=== PATIENT | female | born 1950 | race Caucasian/White ===

== ENCOUNTER 2018-01-23 20:27 | Emergency (ER) | payer OTHER ==
[~2018-01-23] VITALS: Ht 170.2 cm; Wt 113.4 kg
[~2018-01-23 20:27] MED LIST: ANTIVERT25 MG PO; ATIVAN1 MG PO; CIPRO500 MG PO; IBUPROFEN 200200 M1 PO; LOPRESSOR25 PO; LOPRESSOR50; METFORMIN HCL500 MG PO; ONDANSETRON HCL4 M2 PO; PRINIVIL20 MG; SERTRALINE HCL50 MG PO; ZANTAC 150MG T150 MG PO; ZESTORETIC 20-1 EAC2 PO
[2018-01-23] MEDS ORDERED: GLUCOPHAGE XR750 MG PO (20:38)
[2018-01-23] MEDS ORDERED: PERCOCET 7.5-31 EACH PO (21:12)
[2018-01-23 21:33] VITALS: BP 142/76
== END 2018-01-23 21:34 | disposition home or self-care (01) ==
LOC: M.ERS 20:27
DX: S83.8X2A Sprain of other specified parts of left knee, initial encounter (principal); E11.9 Type 2 diabetes mellitus without complications; I10 Essential (primary) hypertension; K21.9 Gastro-esophageal reflux disease without esophagitis; W01.0XXA Fall on same level from slipping, tripping and stumbling without subsequent striking against object, initial encounter; Y93.89 Activity, other specified; Y92.89 Other specified places as the place of occurrence of the external cause; Y99.8 Other external cause status

== ENCOUNTER 2020-11-27 02:17 | Emergency (ER) | payer OTHER ==
[~2020-11-27] VITALS: Ht 170.2 cm; Wt 117.9 kg
[~2020-11-27 02:17] MED LIST changes: +GLUCOPHAGE XR750 MG PO; +PERCOCET 7.5-31 EACH PO
[2020-11-27] MEDS ORDERED: PRILOSEC OTC20 MG PO (02:48)
[2020-11-27] MEDS ORDERED: GLIPIZIDE 10 MG10 MG PO (02:49)
[2020-11-27 02:59] LABS: URINE BILIRUBIN NEGATIVE (Negative); URINE BLOOD TRACE (Negative); URINE CLARITY CLEAR; URINE COLOR YELLOW; URINE GLUCOSE-RANDOM NEGATIVE (Negative); URINE KETONES NEGATIVE (Negative); URINE LEUKOCYTES-REFLEX TRACE (Negative); URINE NITRITE-REFLEX NEGATIVE (Negative); URINE PROTEIN NEGATIVE (Negative); URINE UROBILINOGEN 0.2 E.U./dl (0.2-1.0)
[2020-11-27 03:18] LABS: ABSOLUTE BASOPHILS 0.1 thou/uL (0.0-0.2); ABSOLUTE EOSINOPHILS 0.3 thou/uL (0.0-0.7); ABSOLUTE LYMPHOCYTES 3.1 thou/uL (0.8-5.3); ABSOLUTE MONOCYTES 0.6 thou/uL (0.0-1.2); ABSOLUTE NEUTROPHILS 5.7 thou/uL (1.6-8.1); BASOPHILS 0.6 %; EOSINOPHILS 3.1 %; HEMATOCRIT 34.4 % (37.0-47.0); HEMOGLOBIN 11.4 gm/dL (12.0-15.0); LYMPHOCYTES 31.7 %; MCH 27.8 pg (26.0-34.0); MCHC 33.1 g/dL (28.0-37.0); MONOCYTES 6.6 %; MPV 8.6 fl. (7.2-11.1); NUCLEATED RBCS 0 /100WBC; PLATELET COUNT* 174 thou/uL (150-400); RBC 4.09 mil/uL (4.20-5.00); RDW-CV 14.1 % (10.5-14.5); WBC 9.7 thou/uL (4.0-11.0)
[2020-11-27 03:27] LABS: ALBUMIN 3.4 g/dL (3.4-5.0); MAGNESIUM 1.4 mg/dL (1.8-2.4); TOTAL BILIRUBIN 0.2 mg/dL (<0.1-1.0); TOTAL PROTEIN 7.2 g/dL (6.4-8.2)
[2020-11-27 03:52] LABS: CASTS None Seen /LPF (None Seen); SQUAMOUS >10 Many /LPF (0-3)
[2020-11-27 03:53] LABS: BACTERIA-REFLEX 1-9 Few /HPF (None Seen); CRYSTALS None Seen /LPF (None Seen); URINE RBC None Seen /HPF (0-2); URINE WBC-REFLEX 0-5 Rare /HPF (0-5)
[2020-11-27 05:17] LABS: PROTIME 10.5 Seconds (9.20-11.50)
[2020-11-27 05:46] VITALS: BP 126/69
--- NOTE | 2020-11-27 14:07 | EKG ---
[place] [address] ELECTROCARDIOGRAM REPORT Name: LIBERTAD MARIE Room: [facility]#: [id number] Admission: 11/27/20 Attend Phys: Discharge: Date of : 52 Date of Service: 11/27/20312 Report #: [id number] THIS REPORT FOR: //name// [facility] ED Test Date: 2020-11-27 Test Time: 03:13:43 Pat Name: LIBERTADCarol MARIE Department: Room: Gender: [employer]: [facility] : 1950 Requested By: Kate Nevarez Order Number: [id number] MD: David Bautista Measurements Intervals [place] Rate: 94 P: 60 [place]: 183 QRS: 36 QRSD: 90 T: 41 QT: 344 QTc: 431 Interpretive Statements Sinus rhythm Low voltage, precordial leads Compared to ECG 10/07/2017 10:00:33 Ventricular premature complex(es) no longer present Electronically Signed On 11-27-2020 14:07:38 WEDGER by David Bautista [email or web address] <ELECTRONICALLY SIGNED> By: David Bautista MD, FACC 11/27/20 1407 0313 0313 David Bautista MD, [facility] /EPI
== END 2020-11-27 05:47 | disposition home or self-care (01) ==
LOC: M.ERS 02:17
PROVIDERS: Personal Emergency Response Attendant
DX: E11.649 Type 2 diabetes mellitus with hypoglycemia without coma (principal); R07.89 Other chest pain; I10 Essential (primary) hypertension; K21.9 Gastro-esophageal reflux disease without esophagitis; Z79.899 Other long term (current) drug therapy; Z20.828 Contact with and (suspected) exposure to other viral communicable diseases

== ENCOUNTER → 2021-02-19 | Outpatient (CLI) | payer OTHER ==
[~2021-02-19] MED LIST changes: +GLIPIZIDE 10 MG10 MG PO; +PRILOSEC OTC20 MG PO
== END ==
LOC: M.CT 09:00
PROVIDERS: ATTEND Internal Medicine
DX: Z13.6 Encounter for screening for cardiovascular disorders (principal)